=== PATIENT | male | born 1945 | race Caucasian/White ===

== ENCOUNTER 2021-11-20 22:24 | Observation (INO) ==
--- NOTE | 2021-11-20 22:46 | DR.GENAD ---
HPI Time Seen Time Seen by Provider: 11/20/21 22:42 HPI Comment HPI Comment: A 76 y/o male sent over to the ED for evaluation of frequent falls, generalized weakness and difficulty with ambulation. The pt. states that he barely is able to walk now and has been laying on his sofa at home for overa thu now. He denies back pain. He has been to the [facility]'s ED multiple times for same issues. Nurses notes reviewed Nurses Notes Review: Yes Source History Provided: Patient and Significant Other Mode of Arrival Mode of Arrival: EMS Timing Came on: At Night ROS Review of Systems Constitutional: No Symptoms Reported Eyes: No Symptoms Reported ENTM: No Symptoms Reported Respiratoy: No Symptoms Reported Cardiovascular: No Symptoms Reported Gastrointestinal/Abdominal: No Symptoms Reported Genitourinary: No Symptoms Reported Neurological: Other (gait difficulty) Musculoskeletal: No Symptoms Reported Integumentary: No Symptoms Reported Hematologic/Lymphatic: No Symptoms Reported Endocrine: No Symptoms Reported Psychiatric: No Symptoms Reported All Other Systems: Reviewed and Negative PE Vital Signs Vitals: Temperature 97.8 F Pulse Rate 53 Respiratory Rate 20 Blood Pressure 175/72 O2 Sat by Pulse Oximetry 95 General Limitations: No Limitations General Appearance: Alert and In No Apparent Distress Head Head Exam: Normal Inspection, Atraumatic and Normocephalic Eyes Eye exam: Normal Appearance and EOMI ENT ENT Exam: Normal Exam, Normal Oropharynx, Normal External Ear Exam and Mucous Membranes Moist TM/Canal Exam: Bilateral: Normal Neck Neck Exam: Normal Inspection, Full ROM and Trachea Midline Chest Chest Inspection: Normal Inspection Respiratory Respiratory Exam: Normal Lung Sounds Bilat Respiratory Exam: Bilateral: Clear to Auscultation Cardiovascular Cardiovascular Exam: Regular Rate, Normal Rhythm, +S1, +S2 and Other (He has no pedal edema) Abdominal Exam Abdominal Exam: Normal Inspection, Normal Bowel Sounds and Soft Extremities Extremities Exam: Normal Inspection and Other (motor strength is 4/5 and symmetrical in nick upper extremities but maybe 1/5 in the lower extremities. sensory exam seems intact. ) Back Back Exam: Normal Inspection Neurologic Neurological Exam: Alert and Oriented X3 Psychiatric Psychiatric Exam: Normal Affect and Normal Mood Skin Skin Exam: Dry, Intact and Normal Color COURSE Treatment Treatment: findings were discussed with him I spoke with the on-call I.M. provider (Dr. Moura) who agrees with rewuest to hold him in observation status. Pt. was informed of plan, he agrees with this as that is what he wants also and admit orders were written. Reevaluation 1st: Unchanged Consultation Consultation Comments: Name: Miguel Ángel SCOTT#: [id number]: [id number]: 1945Sex: MLocation: EROrder Number(s): [id number](s):CHEST, 1 VIEW Ordering Physician: KJ CURIEL Primary Care: Hudson Ceja Service Date: 11/20/21 Service Time: 2238 PROCEDURE: Chest X-ray 1 View . HISTORY: Weakness and falls. TECHNIQUE: AP view . COMPARISON: None . TECHNICAL QUALITY: Satisfactory . FINDINGS: Normal size heart with previous sternotomy. Mediastinum and hilar regions show no masses or lymphadenopathy . Normal central vascularity . No pulmonary consolidation, masses, pleural fluid, or pneumothorax . No acute bony abnormality . IMPRESSION: No active cardiopulmonary disease . Electronically signed by: Juan Gillespie (Nov 20, 2021 23:16:17) Report Electronically signed: 11/20/21 0775 CC: Kj Curiel Education/Counseling Education/Counseling: Patient, Education and Counseling Educated On: Treatment, Diagnosis, Prognosis and Needs for Follow Up ROR Labs Reviewed Laboratory Results Reviewed?: Yes Result Diagrams: 11/20/21 22:56 11/20/21 22:56 Laboratory: WBC 9.0 X10^3/uL (3.6-10.0) 11/20/21 22:56 RBC 4.15 X10^6/uL (4.7-6.0) L 11/20/21 22:56 Hgb 12.4 g/dL (13.5-18.0) L 11/20/21 22:56 Hct 35.0 % (42.0-54.0) L 11/20/21 22:56 MCV 84.3 fL (80.0-100.0) 11/20/21 22:56 MCH 29.8 pg (27.0-34.0) 11/20/21 22:56 MCHC 35.4 g/dL (33.0-35.0) H 11/20/21 22:56 RDW 14.7 % (11.6-16.5) 11/20/21 22:56 Plt Count 188 X10^3/uL (150.0-450.0) 11/20/21 22:56 MPV 9.3 fL (7.4-11.0) 11/20/21 22:56 Neut % (Auto) 70.6 % (42.0-75.0) 11/20/21 22:56 Lymph % (Auto) 20.8 % (21.0-51.0) L 11/20/21 22:56 [place]ardo % (Auto) 5.9 % (0.0-13.0) 11/20/21 22:56 Eos % (Auto) 1.4 % (0.9-2.9) 11/20/21 22:56 Baso % (Auto) 1.3 % (0.2-1.0) H 11/20/21 22:56 Neut # (Auto) 6.4 x10^3/uL (2.2-4.8) H 11/20/21 22:56 Lymph # (Auto) 1.9 X10^3/uL (1.3-2.9) 11/20/21 22:56 [place]ardo # (Auto) 0.5 x10^3/uL (0.3-0.8) 11/20/21 22:56 Eos # (Auto) 0.1 x10^3/uL (0.0-0.2) 11/20/21 22:56 Baso # (Auto) 0.1 X10^3/uL (0.0-0.1) 11/20/21 22:56 Absolute Nucleated RBC 0.1 /100WBC 11/20/21 22:56 Sodium 138 mmol/L (136-145) 11/20/21 22:56 Corrected Sodium 142 mmol/L (136-145) 11/20/21 22:56 Potassium 3.4 mmol/L (3.5-5.1) L 11/20/21 22:56 Chloride 99 mmol/L (98-107) 11/20/21 22:56 Carbon Dioxide 33.2 mmol/L (21-32) H 11/20/21 22:56 BUN 35 mg/dL (7-18) H 11/20/21 22:56 Creatinine 1.30 mg/dL (0.70-1.30) 11/20/21 22:56 Est GFR (MDRD) Af Amer > 60 (>60) 11/20/21 22:56 Est GFR (MDRD) Non-Af 57 (>60) L 11/20/21 22:56 Glucose 276 mg/dL (65-99) H 11/20/21 22:56 Calcium 8.2 mg/dL (8.5-10.1) L 11/20/21 22:56 Corrected Calcium 9.3 mg/dL (8.5-10.1) 11/20/21 22:56 Total Bilirubin 0.50 mg/dL (0.2-1.0) 11/20/21 22:56 AST 20 Units/L (15-37) 11/20/21 22:56 ALT 29 Units/L (12-78) 11/20/21 22:56 Alkaline Phosphatase 126 Units/L (46-116) H 11/20/21 22:56 Creatine Kinase 81 Units/L (39-308) 11/20/21 22:56 Troponin I High Sens 16.3 ng/L (4.0-60.0) 11/20/21 22:56 Total Protein 6.0 g/dL (6.4-8.2) L 11/20/21 22:56 Albumin 2.6 g/dL (3.4-5.0) L 11/20/21 22:56 Globulin 3.4 g/dL (2.5-4.5) 11/20/21 22:56 Albumin/Globulin Ratio 0.8 Ratio (1.1-2.1) L 11/20/21 22:56 XRAY XRAY Interpreted by: Self X-ray Results: CXR: No pulmoanry infiltrates noted. there is no cardiomegaly. Radiology report is pending. EKG Rate: 54 Gaylord: Normal Rhythm: SB Block: IVCD Hypertrophy: None ST: Lat and Ischemia Opioid Opioid Risk Tool Total: 0 Total Score Risk Category: Low Risk Copyright: Jean Carlos WILSON predicting aberrant behaviors Discharge Plan Diagnosis Discharge Problem: Weakness Discharge Plan Patient Disposition: ADMITTED INPATIENT Condition: Stable Prescriptions: No Action quetiapine 25 mg tablet 1 tab PO QPM latanoprost 0.005 % drops 1 drp OPHTHALMIC (EYE) QPM primidone 50 mg tablet 1 tab PO QDAY atorvastatin 80 mg tablet 1 tab PO QDAY carvedilol 25 mg tablet 1 tab PO BID donepezil 10 mg tablet 1 tab PO BID prednisone 5 mg tablet 1 tab PO BID citalopram 20 mg tablet 1 tab PO QDAY prednisolone acetate 1 % drops,suspension 1 drp OPHTHALMIC (EYE) QID amlodipine 10 mg tablet 1 tab PO QDAY pantoprazole 40 mg tablet,delayed release (DR/EC) 1 tab PO QDAY metoprolol tartrate 50 mg tablet 1 tab PO BID gabapentin 300 mg capsule 1 cap PO TID hydrochlorothiazide 25 mg tablet 1 tab PO QAM insulin glargine [Lantus Solostar U-100 Insulin] 100 unit/mL (3 mL) insulin pen SUBCUT Label Comments: [NO ORIGINAL SIG] abiraterone 500 mg tablet 1 tab PO BID Health Concerns: Post Hospitalization: new medications and changes needed to prevent readmission or further decline. Pt educated and given instructions on all concerns. Plan of Treatment: Continue with present treatment and follow up plan. Pt is to keep follow up appointment as instructed and take medications as ordered. Orders to Discharge Patient Discharge Orders: Transfer (Routine); Ordered 11/21/21 Ordered By: KJ CURIEL Follow ups/Referrals Follow ups/Referrals: Hudson Ceja [Primary Care Provider] - 3 days ADDITIONAL NOTES Additional Notes Additional Notes: Name: Miguel Ángel SCOTT#: [id number]: [id number]: [id number]: MLocation: EROrder Number(s): [id number](s):BRAIN W/O CON Ordering Physician: KJ CURIEL Primary Care: Hudson Ceja Service Date: 11/20/21 Service Time: 2326 PROCEDURE: CT Head without Contrast . HISTORY: Extremity weakness. TECHNIQUE: Axial images were performed through the head without the administration of IV contrast with multiplanar reformations . Dose reduction techniques including Automated Exposure Control (AEC) and adjustment of mA and kV were utilized . COMPARISON: None . TECHNICAL QUALITY: Satisfactory . FINDINGS: Brain shows no mass, hemorrhage, or acute stroke. Encephalomalacia involving both frontal lobes probably related to previous trauma or stroke. Minimal periventricular old micro ischemic changes. Mild diffuse cerebral and cerebellar atrophy. Ventricles are normal size for patient's age. No acute skull or scalp abnormality. Visualized sinuses and mastoids are clear. IMPRESSION: 1. No acute intracranial abnormality. 2. 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 Senescent changes. Electronically signed by: Juan Gillespie (Nov 21, 2021 00:02:43) Report Electronically signed: 11/21/21 0004 CC: Kj Curiel
[2021-11-20 23:13] LABS: EOSINOPHILS # (AUTO) 0.1 x10^3/uL (0.0-0.2)
[2021-11-20 23:17] LABS: BASOPHILS # (AUTO) 0.1 X10^3/uL (0.0-0.1); BASOPHILS % (AUTO) 1.3 % (0.2-1.0); EOSINOPHILS % (AUTO) 1.4 % (0.9-2.9); HEMOGLOBIN 12.4 g/dL (13.5-18.0); LYMPHOCYTES # (AUTO) 1.9 X10^3/uL (1.3-2.9); LYMPHOCYTES % (AUTO) 20.8 % (21.0-51.0); MEAN CORPUSCULAR HEMOGLOBIN 29.8 pg (27.0-34.0); MEAN CORPUSCULAR HGB CONC 35.4 g/dL (33.0-35.0); MEAN CORPUSCULAR VOLUME 84.3 fL (80.0-100.0); MEAN PLATELET VOLUME 9.3 fL (7.4-11.0); MONOCYTES # (AUTO) 0.5 x10^3/uL (0.3-0.8); MONOCYTES % (AUTO) 5.9 % (0.0-13.0); NEUTROPHILS # (AUTO) 6.4 x10^3/uL (2.2-4.8); NEUTROPHILS % (AUTO) 70.6 % (42.0-75.0); RED BLOOD COUNT 4.15 X10^6/uL (4.7-6.0); RED CELL DISTRIBUTION WIDTH 14.7 % (11.6-16.5)
--- NOTE | 2021-11-20 23:17 | RAD ---
PROCEDURE: Chest X-ray 1 View .HISTORY: Weakness and falls.TECHNIQUE: AP view .COMPARISON: None .TECHNICAL QUALITY: Satisfactory .FINDINGS:Normal size heart with previous sternotomy.Mediastinum and hilar regions show no masses or lymphadenopathy .Normal central vascularity .No pulmonary consolidation, masses, pleural fluid, or pneumothorax .No acute bony abnormality .IMPRESSION:No active cardiopulmonary disease .Electronically signed by: Juan Gillespie (Nov 20, 2021 23:16:17)
[2021-11-20 23:23] LABS: ALANINE AMINOTRANSFERASE 29 Units/L (12-78); ALBUMIN 2.6 g/dL (3.4-5.0); ALKALINE PHOSPHATASE 126 Units/L (46-116); ASPARTATE AMINO TRANSFERASE 20 Units/L (15-37); BLOOD UREA NITROGEN 35 mg/dL (7-18); CALCIUM 8.2 mg/dL (8.5-10.1); CARBON DIOXIDE 33.2 mmol/L (21-32); CHLORIDE 99 mmol/L (98-107); COR CA(FOR HYPOALB) 9.3 mg/dL (8.5-10.1); COR NA(FOR HYPERGLY) 142 mmol/L (136-145); CREATINE KINASE 81 Units/L (39-308); SODIUM 138 mmol/L (136-145); eGFR NON BLACK RACES 57 (>60)
--- NOTE | 2021-11-21 00:04 | CT ---
PROCEDURE: CT Head without Contrast .HISTORY: Extremity weakness.TECHNIQUE: Axial images were performed through the head without the administration of IV contrast with multiplanar reformations . Dose reduction techniques including Automated Exposure Control (AEC) and adjustment of mA and kV were utilized .COMPARISON: None .TECHNICAL QUALITY: Satisfactory .FINDINGS:Brain shows no mass, hemorrhage, or acute stroke.Encephalomalacia involving both frontal lobes probably related to previous trauma or stroke. Minimal periventricular old micro ischemic changes. Mild diffuse cerebral and cerebellar atrophy.Ventricles are normal size for patient's age.No acute skull or scalp abnormality.Visualized sinuses and mastoids are clear.IMPRESSION:1. No acute intracranial abnormality.2. 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 Senescent changes.Electronically signed by: Juan Gillespie (Nov 21, 2021 00:02:43)
[2021-11-21] MEDS ORDERED: NS 1,000 ML IV 1,000 ML ONE (00:54)
[2021-11-21] MEDS: NS 1,000 ML IV 1,000 ML IV SCH ×2 (00:58→15:24)
[2021-11-21] MEDS ORDERED: MYSOLINE PO SCH ×2 (01:00→09:00)
[2021-11-21 01:53] VITALS: BMI 24.3
[2021-11-21 05:05] LABS: BASOPHILS # (AUTO) 0.1 X10^3/uL (0.0-0.1); EOSINOPHILS # (AUTO) 0.2 x10^3/uL (0.0-0.2); EOSINOPHILS % (AUTO) 1.9 % (0.9-2.9); HEMATOCRIT 34.3 % (42.0-54.0); LYMPHOCYTES # (AUTO) 2.2 X10^3/uL (1.3-2.9); LYMPHOCYTES % (AUTO) 24.4 % (21.0-51.0); MEAN CORPUSCULAR HEMOGLOBIN 29.5 pg (27.0-34.0); MEAN CORPUSCULAR VOLUME 84.1 fL (80.0-100.0); MEAN PLATELET VOLUME 9.1 fL (7.4-11.0); MONOCYTES # (AUTO) 0.6 x10^3/uL (0.3-0.8); MONOCYTES % (AUTO) 6.3 % (0.0-13.0); NEUTROPHILS # (AUTO) 5.9 x10^3/uL (2.2-4.8); NEUTROPHILS % (AUTO) 66.4 % (42.0-75.0); RED BLOOD COUNT 4.07 X10^6/uL (4.7-6.0); RED CELL DISTRIBUTION WIDTH 14.6 % (11.6-16.5); WHITE BLOOD COUNT 8.9 X10^3/uL (3.6-10.0)
[2021-11-21 05:17] LABS: ALANINE AMINOTRANSFERASE 29 Units/L (12-78); ALBUMIN 2.5 g/dL (3.4-5.0); ALKALINE PHOSPHATASE 105 Units/L (46-116); ASPARTATE AMINO TRANSFERASE 21 Units/L (15-37); BLOOD UREA NITROGEN 30 mg/dL (7-18); CALCIUM 8.4 mg/dL (8.5-10.1); CARBON DIOXIDE 34.2 mmol/L (21-32); CHLORIDE 102 mmol/L (98-107); COR CA(FOR HYPOALB) 9.6 mg/dL (8.5-10.1); COR NA(FOR HYPERGLY) 143 mmol/L (136-145); CREATININE 1.19 mg/dL (0.70-1.30); SODIUM 141 mmol/L (136-145); TOTAL PROTEIN 5.8 g/dL (6.4-8.2); eGFR NON BLACK RACES > 60 (>60)
[2021-11-21 05:35] LABS: APPEARANCE,URINE CLEAR (CLEAR); BILIRUBIN,URINE NEGATIVE (NEGATIVE); BLOOD/HEMOGLOBIN,URINE 2+ (NEGATIVE); COLOR,URINE PALE YELLOW (YELLOW); GLUCOSE, URINE 3+ (NEGATIVE); KETONES,URINE NEGATIVE (NEGATIVE); LEUKOCYTE ESTERASE ,URINE NEGATIVE (NEGATIVE); NITRITES,URINE NEGATIVE (NEGATIVE); PH,URINE 6.5 (5.0 - 8.0); PROTEIN,URINE 1+ (NEGATIVE); UROBILINOGEN,URINE NORMAL (NORMAL)
[2021-11-21 05:36] LABS: BACTERIA,URINE NEGATIVE /HPF (NEGATIVE); RBC,URINE 0-2 /HPF (0-3); SQUAMOUS EPITHELIAL CELL,UR RARE /HPF (NEGATIVE)
[2021-11-21] MEDS ORDERED: KLOR-CON PO PRN (06:28)
[2021-11-21] MEDS ORDERED: POTASSIUM CHLORIDE LIQ 20 MEQ UDC PO PRN (06:28)
[2021-11-21] MEDS ORDERED: K-DUR TAB 20 MEQ PO PRN (06:28)
[2021-11-21] MEDS ORDERED: K-RIDER 10 MEQ/NS 100 ML 10 MEQ/100 ML BAG IV PRN (06:28)
[2021-11-21] MEDS ORDERED: POTASSIUM CHL 60 MEQ/NS 0.45% 500 ML IV PRN (06:28)
[2021-11-21] MEDS ORDERED: MICRO K EXTEN CAP 10 MEQ PO PRN (06:28)
[2021-11-21] MEDS ORDERED: POTASSIUM CHL 40 MEQ/NS 0.45% 500 ML IV PRN (06:28)
[2021-11-21] MEDS: NEURONTIN CAP 300 MG PO SCH ×3 (06:42→22:16)
[2021-11-21] MEDS ORDERED: ABIRATERONE 500 MG PO SCH (09:00)
[2021-11-21] MEDS: PRED FORTE 1 % OP SCH ×4 (09:03→22:14)
[2021-11-21] MEDS: APRESOLINE TAB 25 MG PO SCH ×2 (09:04→22:15)
[2021-11-21] MEDS: MAGNESIUM SULFATE 1 GRAM/100 mL PREMIX 1 G/100 ML BAG IV PRN ×2 (09:04→15:24)
[2021-11-21] MEDS: LIPITOR TAB 80 MG PO SCH (09:04)
[2021-11-21] MEDS: LOVENOX INJ 30 MG SYR SC SCH (09:04)
[2021-11-21] MEDS: PREDNISONE TAB 5 MG PO SCH ×2 (09:04→22:16)
[2021-11-21] MEDS: CELEXA PO SCH (09:05)
[2021-11-21] MEDS: ARICEPT TAB 10 MG PO SCH ×2 (09:05→22:16)
[2021-11-21] MEDS: NORVASC TAB 10 MG PO SCH (09:05)
[2021-11-21] MEDS: PROTONIX TAB 40 MG PO SCH (09:05)
[2021-11-21] MEDS: NovoLIN R (or HumuLIN R) SUBCUT PRN ×3 (11:40→22:14)
[2021-11-21] MEDS: MYSOLINE PO SCH (16:01)
--- NOTE | 2021-11-21 16:26 | DR.H&P ---
H&P History & Physical for Day of: H&P Date: 11/21/21 Chief Complaint Chief Complaint: Weakness/nonambulatory Allergies Allergies Allergy/AdvReac Type Severity Reaction Status Date / Time clopidogrel [From Plavix] Allergy Verified 11/20/21 22:50 History of Present Illness History of Present Illness: This is a 76-year-old white male who presented to the emergency department last night. He is from [place], [place] where his primary care physician is located. His family brought him in here stating that he needs to go to [facility] for inpatient rehabilitation as he is not able to get up and walk on his own. He is falling when he does try to get up and they reported they were no longer take care of him at home. Patient reports his symptoms started 2 weeks ago after he was given a medication to help with sleep by his primary care physician and he took it and did not wake up for 3 days later. After he did wake up he reported that he was not able to get out of bed thereafter and if he does try to stand he falls. Chest x-ray done in ER reveals normal CT of the brain revealed no acute ischemic problems but it does show some encephalomalacia of both frontal lobes consistent with prior CVA or trauma. Since the changes were noted otherwise nothing acute. Labs were unremarkable as well as urinalysis. The patient does report a history of prostate cancer that he has been treated for by Dr. Hardy for the last 4 years. His urologist is Dr. Nam Rowe MD in [place], [place]. Past Medical History Past Medical History: Arthritis, Coronary Artery Disease, CVA, Dementia, Depression, Diabetes, Dyslipidemia, GERD, Hypertension, KS and Renal Disease Past Surgical History Surgical History: Cholecystectomy Family History Family Medical History: Cancer and Hypertension Social History Does patient currently use any type of tobacco product: No Have you used tobacco products in the last 12 months: No Type of Tobacco Use: None Does any household member use tobacco: No Alcohol Use: None Medications Home Medications: clopidogrel [From Plavix] Allergy (Verified 11/20/21 22:50) CONTINUE taking the following medications abiraterone 500 mg tablet 1 tab PO BID 11/20/21 [History] amlodipine 10 mg tablet 1 tab PO QDAY 11/20/21 [History] atorvastatin 80 mg tablet 1 tab PO QDAY 11/20/21 [History] carvedilol 25 mg tablet 1 tab PO BID 11/20/21 [History] citalopram 20 mg tablet 1 tab PO QDAY 11/20/21 [History] donepezil 10 mg tablet 1 tab PO BID 11/20/21 [History] gabapentin 300 mg capsule 1 cap PO TID 11/20/21 [History] hydrochlorothiazide 25 mg tablet 1 tab PO QAM 11/20/21 [History] insulin glargine 100 unit/mL (3 mL) subcutaneous pen (Lantus Solostar U-100 Insulin) 16 ea subcut BID 11/20/21 [History] latanoprost 0.005 % eye drops 1 drp ophthalmic (eye) QPM 11/20/21 [History] metoprolol tartrate 50 mg tablet 1 tab PO BID 11/20/21 [History] pantoprazole 40 mg tablet,delayed release 1 tab PO QDAY 11/20/21 [History] prednisolone acetate 1 % eye drops,suspension 1 drp ophthalmic (eye) QID 11/20/21 [History] prednisone 5 mg tablet 1 tab PO BID 11/20/21 [History] primidone 50 mg tablet 1 tab PO QDAY 11/20/21 [History] quetiapine 25 mg tablet 1 tab PO QPM 11/20/21 [History] Labs Result Diagrams: 11/21/21 04:30 11/21/21 04:30 Labs: Laboratory WBC 8.9 X10^3/uL (3.6-10.0) 11/21/21 04:30 RBC 4.07 X10^6/uL (4.7-6.0) L 11/21/21 04:30 Hgb 12.0 g/dL (13.5-18.0) L 11/21/21 04:30 Hct 34.3 % (42.0-54.0) L 11/21/21 04:30 MCV 84.1 fL (80.0-100.0) 11/21/21 04:30 MCH 29.5 pg (27.0-34.0) 11/21/21 04:30 MCHC 35.0 g/dL (33.0-35.0) 11/21/21 04:30 RDW 14.6 % (11.6-16.5) 11/21/21 04:30 Plt Count 174 X10^3/uL (150.0-450.0) 11/21/21 04:30 MPV 9.1 fL (7.4-11.0) 11/21/21 04:30 Neut % (Auto) 66.4 % (42.0-75.0) 11/21/21 04:30 Lymph % (Auto) 24.4 % (21.0-51.0) 11/21/21 04:30 Sawyer % (Auto) 6.3 % (0.0-13.0) 11/21/21 04:30 Eos % (Auto) 1.9 % (0.9-2.9) 11/21/21 04:30 Baso % (Auto) 1.0 % (0.2-1.0) 11/21/21 04:30 Neut # (Auto) 5.9 x10^3/uL (2.2-4.8) H 11/21/21 04:30 Lymph # (Auto) 2.2 X10^3/uL (1.3-2.9) 11/21/21 04:30 Sawyer # (Auto) 0.6 x10^3/uL (0.3-0.8) 11/21/21 04:30 Eos # (Auto) 0.2 x10^3/uL (0.0-0.2) 11/21/21 04:30 Baso # (Auto) 0.1 X10^3/uL (0.0-0.1) 11/21/21 04:30 Absolute Nucleated RBC 0.0 /100WBC 11/21/21 04:30 Sodium 141 mmol/L (136-145) 11/21/21 04:30 Corrected Sodium 143 mmol/L (136-145) 11/21/21 04:30 Potassium 3.4 mmol/L (3.5-5.1) L 11/21/21 04:30 Chloride 102 mmol/L (98-107) 11/21/21 04:30 Carbon Dioxide 34.2 mmol/L (21-32) H 11/21/21 04:30 BUN 30 mg/dL (7-18) H 11/21/21 04:30 Creatinine 1.19 mg/dL (0.70-1.30) 11/21/21 04:30 Est GFR (MDRD) Af Amer > 60 (>60) 11/21/21 04:30 Est GFR (MDRD) Non-Af > 60 (>60) 11/21/21 04:30 Glucose 174 mg/dL (65-99) H 11/21/21 04:30 POC Glucose (mg/dL) 253 mg/dL (65-99) H 11/21/21 10:50 Calcium 8.4 mg/dL (8.5-10.1) L 11/21/21 04:30 Corrected Calcium 9.6 mg/dL (8.5-10.1) 11/21/21 04:30 Magnesium 1.8 mg/dL (1.7-2.9) 11/21/21 04:30 Total Bilirubin 0.40 mg/dL (0.2-1.0) 11/21/21 04:30 AST 21 Units/L (15-37) 11/21/21 04:30 ALT 29 Units/L (12-78) 11/21/21 04:30 Alkaline Phosphatase 105 Units/L (46-116) 11/21/21 04:30 Creatine Kinase 81 Units/L (39-308) 11/20/21 22:56 Troponin I High Sens 16.3 ng/L (4.0-60.0) 11/20/21 22:56 Total Protein 5.8 g/dL (6.4-8.2) L 11/21/21 04:30 Albumin 2.5 g/dL (3.4-5.0) L 11/21/21 04:30 Globulin 3.3 g/dL (2.5-4.5) 11/21/21 04:30 Albumin/Globulin Ratio 0.8 Ratio (1.1-2.1) L 11/21/21 04:30 Total PSA 0.49 ng/mL (0.13-4.0) 11/21/21 04:30 Specimen Type Clean catch urine 11/21/21 05:19 Urine Color Pale yellow (YELLOW) 11/21/21 05:19 Urine Appearance Clear (CLEAR) 11/21/21 05:19 Urine pH 6.5 (5.0 - 8.0) 11/21/21 05:19 Ur Specific [place] 1.010 (1.000-1.030) 11/21/21 05:19 Urine Protein 1+ (NEGATIVE) 11/21/21 05:19 Urine Glucose (UA) 3+ (NEGATIVE) 11/21/21 05:19 Urine Ketones Negative (NEGATIVE) 11/21/21 05:19 Urine Blood 2+ (NEGATIVE) 11/21/21 05:19 Urine Nitrite Negative (NEGATIVE) 11/21/21 05:19 Urine Bilirubin Negative (NEGATIVE) 11/21/21 05:19 Urine Urobilinogen Normal (NORMAL) 11/21/21 05:19 Ur Leukocyte Esterase Negative (NEGATIVE) 11/21/21 05:19 Urine RBC 0-2 /HPF (0-3) 11/21/21 05:19 Urine WBC None seen /HPF (0-5) 11/21/21 05:19 Ur Squamous Epith Cells Rare /HPF (NEGATIVE) 11/21/21 05:19 Urine Bacteria Negative /HPF (NEGATIVE) 11/21/21 05:19 Ur Culture Indicated? No/not indicated 11/21/21 05:19 SARS-CoV-2 (PCR) Negative (NEGATIVE) 11/21/21 00:13 Review of Systems Constitutional: Weakness Eyes: No Symptoms Reported ENT: No Symptoms Reported Respiratory: No Symptoms Reported Cardiovascular: No Symptoms Reported Gastrointestinal: No Symptoms Reported Genitourinary: No Symptoms Reported Musculoskeletal: Other (Diffuse muscular weakness) Skin: No Symptoms Reported Neurological: No Symptoms Reported Physical Exam Vital Signs: Temperature 97.9 F Pulse Rate [Left] 62 Pulse Rate 55 Respiratory Rate 20 Blood Pressure [Left Arm] 152/67 Blood Pressure 152/92 O2 Sat by Pulse Oximetry 94 Oriented: Normal, Time, Person and Place Eyes: Normal Ear: Normal Nose: Normal Throat: Normal Respiratory: Clear Throughout Cardiovascular: Normal : Normal Palpation: Normal Tenderness: Normal Skin: Normal Musculoskeletal: Normal Psychiatric: Normal Mood Description: Calm Affect: Normal Speech Pattern: Clear and Appropriate Assessment/Plan (1) Myopathy: Narrative Support Text: 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 He will be related to his underlying prostate cancer. Status: Acute Plan: Given the patient's weakness from this we will plan on getting him admitted to inpatient rehab for physical rehabilitation and therapy to see if they can help improve his strength where he can be ambulatory again. The patient wishes to go to in [place], [place] in his hometown and we have found one at this time and hopefully they will be able to take him of the next day or 2. They report that they do accept admissions over weekends. (2) History of prostate cancer: Status: Acute (3) Hypertension: Status: Acute Plan: Resume patient's home antihypertensive medications. (4) Coronary artery disease: Status: Acute Plan: I will resume the patient's atorvastatin and antihypertensives. (5) Insomnia: Status: Acute Plan: I will hold the patient's Seroquel because I am not sure if that is what the medicine was given to him the started his 3 days of sleep. (6) Diabetes mellitus type 2, insulin dependent: Status: Acute Plan: I will resume the patient home insulin.
[2021-11-21] MEDS ORDERED: SNACK - Diabetic Appropriate PO SCH (20:00)
[2021-11-21] MEDS ORDERED: XALATAN OP SCH (21:00)
[2021-11-21] MEDS ORDERED: LANTUS SC SCH (21:00)
[2021-11-21] MEDS ORDERED: SEROquel TAB 25 mg PO SCH (21:00)
[2021-11-21] MEDS: LANTUS SC SCH (22:14)
[2021-11-21] MEDS: LOPRESSOR TAB 50 MG PO SCH (22:16)
[2021-11-21] MEDS: COREG TAB 25 MG PO SCH (22:17)
[2021-11-22] MEDS: NS 1,000 ML IV 1,000 ML IV SCH (03:46)
[2021-11-22 05:31] LABS: BASOPHILS # (AUTO) 0.1 X10^3/uL (0.0-0.1); BASOPHILS % (AUTO) 0.8 % (0.2-1.0); EOSINOPHILS # (AUTO) 0.1 x10^3/uL (0.0-0.2); EOSINOPHILS % (AUTO) 0.8 % (0.9-2.9); HEMATOCRIT 35.1 % (42.0-54.0); HEMOGLOBIN 12.2 g/dL (13.5-18.0); LYMPHOCYTES # (AUTO) 1.5 X10^3/uL (1.3-2.9); LYMPHOCYTES % (AUTO) 13.7 % (21.0-51.0); MEAN CORPUSCULAR HEMOGLOBIN 29.6 pg (27.0-34.0); MEAN CORPUSCULAR HGB CONC 34.8 g/dL (33.0-35.0); MEAN CORPUSCULAR VOLUME 84.9 fL (80.0-100.0); MEAN PLATELET VOLUME 9.2 fL (7.4-11.0); MONOCYTES # (AUTO) 0.5 x10^3/uL (0.3-0.8); MONOCYTES % (AUTO) 4.8 % (0.0-13.0); NEUTROPHILS # (AUTO) 8.6 x10^3/uL (2.2-4.8); NEUTROPHILS % (AUTO) 79.9 % (42.0-75.0); RED BLOOD COUNT 4.14 X10^6/uL (4.7-6.0); RED CELL DISTRIBUTION WIDTH 14.2 % (11.6-16.5); WHITE BLOOD COUNT 10.8 X10^3/uL (3.6-10.0)
[2021-11-22 05:43] LABS: ALANINE AMINOTRANSFERASE 28 Units/L (12-78); ALBUMIN 2.5 g/dL (3.4-5.0); ALKALINE PHOSPHATASE 100 Units/L (46-116); ASPARTATE AMINO TRANSFERASE 20 Units/L (15-37); BLOOD UREA NITROGEN 32 mg/dL (7-18); CALCIUM 8.1 mg/dL (8.5-10.1); CHLORIDE 105 mmol/L (98-107); COR CA(FOR HYPOALB) 9.3 mg/dL (8.5-10.1); COR NA(FOR HYPERGLY) 142 mmol/L (136-145); CREATININE 1.39 mg/dL (0.70-1.30); MAGNESIUM 2.1 mg/dL (1.7-2.9); SODIUM 141 mmol/L (136-145); eGFR NON BLACK RACES 53 (>60)
[2021-11-22] MEDS: NEURONTIN CAP 300 MG PO SCH (05:55)
[2021-11-22] MEDS ORDERED: HYDROCHLOROTHIAZIDE 25 MG TAB PO SCH (09:00)
[2021-11-22] MEDS ORDERED: ABIRATERONE 500 MG PO SCH (09:00)
--- NOTE | 2021-11-22 09:17 | PCM.PROG ---
Progress Note Progress Note for Day of Date of Exam: 11/22/21 Subjective Subjective: The patient is resting well this morning. He does report he feels better today and that he sat on the side of the bed yesterday and did stand up with help. The rn case manager started working on getting him transferred to a [facility] for rehab in [place], [place]. His family initiated talks about getting him into a rehab facility for temporary inpatient physical therapy and rehabilitation. They were reviewed his case now and they accept him they will be transferring him there over the next day or so. We will continue to get the patient IV fluid and start physical therapy only to help get him ambulatory again and to build back his muscle strength. Also noted the patient is blood pressure is not controlled at this time. Past Medical Family Social History Allergies: Allergies clopidogrel [From Plavix] Allergy (Verified 11/20/21 22:50) Review of Systems ROS: No change since H&P Vital Signs and I&O's Vital Signs: Temperature 97.5 F Pulse Rate [Left] 63 Pulse Rate 55 Respiratory Rate 18 Blood Pressure [Right Arm] 150/68 Blood Pressure [Left Arm] 171/76 Blood Pressure 152/92 O2 Sat by Pulse Oximetry 98 Intake and Output: Intake & Output 11/19/21 11/20/21 11/21/21 11/22/21 11:59 11:59 11:59 11:59 Intake Total 686 / 686 780 / 780 Output Total 500 / 500 350 / 350 Balance 186 / 186 430 / 430 Physical Exam Oriented: Normal, Time, Person and Place Eyes: Normal Ear: Normal Nose: Normal Throat: Normal Respiratory: Normal Cardiovascular: Normal : Normal Tenderness: Normal Skin: Normal Musculoskeletal: Normal Psychiatric: Normal Mood Description: Calm Affect: Normal Speech Pattern: Clear and Appropriate Laboratory and Diagnostics Result Diagrams: 11/22/21 04:40 11/22/21 04:40 Labs: Laboratory WBC 10.8 X10^3/uL (3.6-10.0) H 11/22/21 04:40 RBC 4.14 X10^6/uL (4.7-6.0) L 11/22/21 04:40 Hgb 12.2 g/dL (13.5-18.0) L 11/22/21 04:40 Hct 35.1 % (42.0-54.0) L 11/22/21 04:40 MCV 84.9 fL (80.0-100.0) 11/22/21 04:40 MCH 29.6 pg (27.0-34.0) 11/22/21 04:40 MCHC 34.8 g/dL (33.0-35.0) 11/22/21 04:40 RDW 14.2 % (11.6-16.5) 11/22/21 04:40 Plt Count 174 X10^3/uL (150.0-450.0) 11/22/21 04:40 MPV 9.2 fL (7.4-11.0) 11/22/21 04:40 Neut % (Auto) 79.9 % (42.0-75.0) H 11/22/21 04:40 Lymph % (Auto) 13.7 % (21.0-51.0) L 11/22/21 04:40 [place] % (Auto) 4.8 % (0.0-13.0) 11/22/21 04:40 Eos % (Auto) 0.8 % (0.9-2.9) L 11/22/21 04:40 Baso % (Auto) 0.8 % (0.2-1.0) 11/22/21 04:40 Neut # (Auto) 8.6 x10^3/uL (2.2-4.8) H 11/22/21 04:40 Lymph # (Auto) 1.5 X10^3/uL (1.3-2.9) 11/22/21 04:40 [place] # (Auto) 0.5 x10^3/uL (0.3-0.8) 11/22/21 04:40 Eos # (Auto) 0.1 x10^3/uL (0.0-0.2) 11/22/21 04:40 Baso # (Auto) 0.1 X10^3/uL (0.0-0.1) 11/22/21 04:40 Absolute Nucleated RBC 0.0 /100WBC 11/22/21 04:40 Sodium 141 mmol/L (136-145) 11/22/21 04:40 Corrected Sodium 142 mmol/L (136-145) 11/22/21 04:40 Potassium 4.5 mmol/L (3.5-5.1) 11/22/21 04:40 Chloride 105 mmol/L (98-107) 11/22/21 04:40 Carbon Dioxide 31.0 mmol/L (21-32) 11/22/21 04:40 BUN 32 mg/dL (7-18) H 11/22/21 04:40 Creatinine 1.39 mg/dL (0.70-1.30) H 11/22/21 04:40 Est GFR (MDRD) Af Amer > 60 (>60) 11/22/21 04:40 Est GFR (MDRD) Non-Af 53 (>60) L 11/22/21 04:40 Glucose 140 mg/dL (65-99) H 11/22/21 04:40 POC Glucose (mg/dL) 366 mg/dL (65-99) H 11/21/21 20:30 Calcium 8.1 mg/dL (8.5-10.1) L 11/22/21 04:40 Corrected Calcium 9.3 mg/dL (8.5-10.1) 11/22/21 04:40 Magnesium 2.1 mg/dL (1.7-2.9) 11/22/21 04:40 Total Bilirubin 0.40 mg/dL (0.2-1.0) 11/22/21 04:40 AST 20 Units/L (15-37) 11/22/21 04:40 ALT 28 Units/L (12-78) 11/22/21 04:40 Alkaline Phosphatase 100 Units/L (46-116) 11/22/21 04:40 Creatine Kinase 81 Units/L (39-308) 11/20/21 22:56 Troponin I High Sens 16.3 ng/L (4.0-60.0) 11/20/21 22:56 Total Protein 6.0 g/dL (6.4-8.2) L 11/22/21 04:40 Albumin 2.5 g/dL (3.4-5.0) L 11/22/21 04:40 Globulin 3.5 g/dL (2.5-4.5) 11/22/21 04:40 Albumin/Globulin Ratio 0.7 Ratio (1.1-2.1) L 11/22/21 04:40 Total PSA 0.49 ng/mL (0.13-4.0) 11/21/21 04:30 Specimen Type Clean catch urine 11/21/21 05:19 Urine Color Pale yellow (YELLOW) 11/21/21 05:19 Urine Appearance Clear (CLEAR) 11/21/21 05:19 Urine pH 6.5 (5.0 - 8.0) 11/21/21 05:19 Ur Specific [place] 1.010 (1.000-1.030) 11/21/21 05:19 Urine Protein 1+ (NEGATIVE) 11/21/21 05:19 Urine Glucose (UA) 3+ (NEGATIVE) 11/21/21 05:19 Urine Ketones Negative (NEGATIVE) 11/21/21 05:19 Urine Blood 2+ (NEGATIVE) 11/21/21 05:19 Urine Nitrite Negative (NEGATIVE) 11/21/21 05:19 Urine Bilirubin Negative (NEGATIVE) 11/21/21 05:19 Urine Urobilinogen Normal (NORMAL) 11/21/21 05:19 Ur Leukocyte Esterase Negative (NEGATIVE) 11/21/21 05:19 Urine RBC 0-2 /HPF (0-3) 11/21/21 05:19 Urine WBC None seen /HPF (0-5) 11/21/21 05:19 Ur Squamous Epith Cells Rare /HPF (NEGATIVE) 11/21/21 05:19 Urine Bacteria Negative /HPF (NEGATIVE) 11/21/21 05:19 Ur Culture Indicated? No/not indicated 11/21/21 05:19 SARS-CoV-2 (PCR) Negative (NEGATIVE) 11/21/21 00:13 Plan (1) Myopathy: Status: Acute Plan: Given the patient's weakness from this we will plan on getting him admitted to inpatient rehab for physical rehabilitation and therapy to see if they can help improve his strength where he can be ambulatory again. The patient wishes to go to 1 in [place], [place] in his hometown and we have found one at this time and hopefully they will be able to take him of the next day or 2. They report that they do accept admissions over weekends. (2) History of prostate cancer: Status: Acute Plan: Patient has been receiving outpatient prostate cancer treatment per funeral planning counselor/Oncologist Dr. Hardy. (3) Hypertension: Status: Acute Narrative Support Text: The patient's blood pressure has been uncontrolled since admission. The patient's blood pressure this morning is 150/68. Plan: Patient is taking amlodipine 10 mg daily, Coreg 25 mg twice daily, HCTZ 25 mg daily and hydralazine 25 mg twice daily. I will add losartan 50 mg daily and the dose can be titrated up or down according what his blood pressure is running. (4) Coronary artery disease: Status: Acute Plan: I will resume the patient's atorvastatin and antihypertensives. (5) Insomnia: Status: Acute Plan: I will hold the patient's Seroquel because I am not sure if that is what the medicine was given to him the started his 3 days of sleep. (6) Diabetes mellitus type 2, insulin dependent: Status: Acute Plan: I will resume the patient home insulin.
[2021-11-22] MEDS: ARICEPT TAB 10 MG PO SCH (09:25)
[2021-11-22] MEDS: LIPITOR TAB 80 MG PO SCH (09:26)
[2021-11-22] MEDS: COREG TAB 25 MG PO SCH (09:26)
[2021-11-22] MEDS: NORVASC TAB 10 MG PO SCH (09:26)
[2021-11-22] MEDS: MYSOLINE PO SCH (09:26)
[2021-11-22] MEDS: CELEXA PO SCH (09:26)
[2021-11-22] MEDS: LOPRESSOR TAB 50 MG PO SCH (09:26)
[2021-11-22] MEDS: PROTONIX TAB 40 MG PO SCH (09:26)
[2021-11-22] MEDS: APRESOLINE TAB 25 MG PO SCH (09:26)
[2021-11-22] MEDS: PREDNISONE TAB 5 MG PO SCH (09:26)
[2021-11-22] MEDS: PRED FORTE 1 % OP SCH ×2 (09:27→12:14)
[2021-11-22] MEDS: LANTUS SC SCH (09:36)
[2021-11-22] MEDS: LOVENOX INJ 30 MG SYR SC SCH (09:37)
[2021-11-22] MEDS ORDERED: COZAAR PO SCH (10:00)
--- NOTE | 2021-11-22 11:16 | PCM.DCPLAN ---
DISCHARGE SUMMARY Admission Date Date of Admission: 11/21/21 Discharge Date Discharge Date: 11/22/21 Admission Diagnoses (1) Myopathy: Status: Acute (2) History of prostate cancer: Status: Acute (3) Hypertension: Status: Acute (4) Coronary artery disease: Status: Acute (5) Insomnia: Status: Acute (6) Diabetes mellitus type 2, insulin dependent: Status: Acute Discharge Diagnoses Discharge Diagnosis: 1. Biopsy of chronic illness 2. History of prostate cancer 3. Hypertension 4. Coronary artery disease 5. Chronic persistent insomnia 6. Diabetes mellitus type 2 Discharge Medications Discharge Medications: Home Medication List abiraterone 500 mg tablet 1 tab PO BID 11/20/21 [History] amlodipine 10 mg tablet 1 tab PO QDAY 11/20/21 [History] atorvastatin 80 mg tablet 1 tab PO QDAY 11/20/21 [History] carvedilol 25 mg tablet 1 tab PO BID 11/20/21 [History] citalopram 20 mg tablet 1 tab PO QDAY 11/20/21 [History] donepezil 10 mg tablet 1 tab PO BID 11/20/21 [History] gabapentin 300 mg capsule 1 cap PO TID 11/20/21 [History] insulin glargine 100 unit/mL (3 mL) subcutaneous pen (Lantus Solostar U-100 Insulin) 16 ea subcut BID 11/20/21 [History] latanoprost 0.005 % eye drops 1 drp ophthalmic (eye) QPM 11/20/21 [History] pantoprazole 40 mg tablet,delayed release 1 tab PO QDAY 11/20/21 [History] prednisolone acetate 1 % eye drops,suspension 1 drp ophthalmic (eye) QID 11/20/21 [History] prednisone 5 mg tablet 1 tab PO BID 11/20/21 [History] primidone 50 mg tablet 1 tab PO QDAY 11/20/21 [History] quetiapine 25 mg tablet 1 tab PO QPM 11/20/21 [History] losartan 50 mg tablet 50 mg PO DAILY 11/22/21 [Rx] Prescriptions: Hospital Course Vital Signs: Temperature 97.8 F Pulse Rate [Left] 67 Pulse Rate 55 Respiratory Rate 14 Blood Pressure [Right Arm] 148/77 Blood Pressure [Left Arm] 171/76 Blood Pressure 152/92 O2 Sat by Pulse Oximetry 97 Latest Lab Results: Laboratory Last Values WBC 10.8 X10^3/uL (3.6-10.0) H 11/22/21 04:40 RBC 4.14 X10^6/uL (4.7-6.0) L 11/22/21 04:40 Hgb 12.2 g/dL (13.5-18.0) L 11/22/21 04:40 Hct 35.1 % (42.0-54.0) L 11/22/21 04:40 MCV 84.9 fL (80.0-100.0) 11/22/21 04:40 MCH 29.6 pg (27.0-34.0) 11/22/21 04:40 MCHC 34.8 g/dL (33.0-35.0) 11/22/21 04:40 RDW 14.2 % (11.6-16.5) 11/22/21 04:40 Plt Count 174 X10^3/uL (150.0-450.0) 11/22/21 04:40 MPV 9.2 fL (7.4-11.0) 11/22/21 04:40 Neut % (Auto) 79.9 % (42.0-75.0) H 11/22/21 04:40 Lymph % (Auto) 13.7 % (21.0-51.0) L 11/22/21 04:40 [place] % (Auto) 4.8 % (0.0-13.0) 11/22/21 04:40 Eos % (Auto) 0.8 % (0.9-2.9) L 11/22/21 04:40 Baso % (Auto) 0.8 % (0.2-1.0) 11/22/21 04:40 Neut # (Auto) 8.6 x10^3/uL (2.2-4.8) H 11/22/21 04:40 Lymph # (Auto) 1.5 X10^3/uL (1.3-2.9) 11/22/21 04:40 [place] # (Auto) 0.5 x10^3/uL (0.3-0.8) 11/22/21 04:40 Eos # (Auto) 0.1 x10^3/uL (0.0-0.2) 11/22/21 04:40 Baso # (Auto) 0.1 X10^3/uL (0.0-0.1) 11/22/21 04:40 Absolute Nucleated RBC 0.0 /100WBC 11/22/21 04:40 Sodium 141 mmol/L (136-145) 11/22/21 04:40 Corrected Sodium 142 mmol/L (136-145) 11/22/21 04:40 Potassium 4.5 mmol/L (3.5-5.1) 11/22/21 04:40 Chloride 105 mmol/L (98-107) 11/22/21 04:40 Carbon Dioxide 31.0 mmol/L (21-32) 11/22/21 04:40 BUN 32 mg/dL (7-18) H 11/22/21 04:40 Creatinine 1.39 mg/dL (0.70-1.30) H 11/22/21 04:40 Est GFR (MDRD) Af Amer > 60 (>60) 11/22/21 04:40 Est GFR (MDRD) Non-Af 53 (>60) L 11/22/21 04:40 Glucose 140 mg/dL (65-99) H 11/22/21 04:40 POC Glucose (mg/dL) 366 mg/dL (65-99) H 11/21/21 20:30 Calcium 8.1 mg/dL (8.5-10.1) L 11/22/21 04:40 Corrected Calcium 9.3 mg/dL (8.5-10.1) 11/22/21 04:40 Magnesium 2.1 mg/dL (1.7-2.9) 11/22/21 04:40 Total Bilirubin 0.40 mg/dL (0.2-1.0) 11/22/21 04:40 AST 20 Units/L (15-37) 11/22/21 04:40 ALT 28 Units/L (12-78) 11/22/21 04:40 Alkaline Phosphatase 100 Units/L (46-116) 11/22/21 04:40 Creatine Kinase 81 Units/L (39-308) 11/20/21 22:56 Troponin I High Sens 16.3 ng/L (4.0-60.0) 11/20/21 22:56 Total Protein 6.0 g/dL (6.4-8.2) L 11/22/21 04:40 Albumin 2.5 g/dL (3.4-5.0) L 11/22/21 04:40 Globulin 3.5 g/dL (2.5-4.5) 11/22/21 04:40 Albumin/Globulin Ratio 0.7 Ratio (1.1-2.1) L 11/22/21 04:40 Total PSA 0.49 ng/mL (0.13-4.0) 11/21/21 04:30 Specimen Type Clean catch urine 11/21/21 05:19 Urine Color Pale yellow (YELLOW) 11/21/21 05:19 Urine Appearance Clear (CLEAR) 11/21/21 05:19 Urine pH 6.5 (5.0 - 8.0) 11/21/21 05:19 Ur Specific [place] 1.010 (1.000-1.030) 11/21/21 05:19 Urine Protein 1+ (NEGATIVE) 11/21/21 05:19 Urine Glucose (UA) 3+ (NEGATIVE) 11/21/21 05:19 Urine Ketones Negative (NEGATIVE) 11/21/21 05:19 Urine Blood 2+ (NEGATIVE) 11/21/21 05:19 Urine Nitrite Negative (NEGATIVE) 11/21/21 05:19 Urine Bilirubin Negative (NEGATIVE) 11/21/21 05:19 Urine Urobilinogen Normal (NORMAL) 11/21/21 05:19 Ur Leukocyte Esterase Negative (NEGATIVE) 11/21/21 05:19 Urine RBC 0-2 /HPF (0-3) 11/21/21 05:19 Urine WBC None seen /HPF (0-5) 11/21/21 05:19 Ur Squamous Epith Cells Rare /HPF (NEGATIVE) 11/21/21 05:19 Urine Bacteria Negative /HPF (NEGATIVE) 11/21/21 05:19 Ur Culture Indicated? No/not indicated 11/21/21 05:19 SARS-CoV-2 (PCR) Negative (NEGATIVE) 11/21/21 00:13 Hospital Course: After admission the patient was started on IV fluid and we resumed his regular home medicine. I discussed with the patient what was going on and he reports he has a 2-week history of not being able to ambulate after taking some sleeping pills that put him asleep for 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 There was no acute ischemic findings or problems noted on the CT. Chest x-ray was normal. The patient's blood pressure has been elevated since being admitted for observation. Asked starting him on losartan this morning 50 mg daily and stopped his hydralazine 25 mg twice daily. I also stopped his metoprolol tartrate 50 mg twice daily and replaced with Coreg 25 mg twice daily. Our home health care case manager started working on prison placement in [place], [place] and still rehab. They have agreed to accept the patient today for inpatient physical therapy to help restrengthen his muscles to get him ambulatory again. Patient will be discharged today in stable condition to skilled rehab in [place], [place].
[2021-11-22] MEDS: NovoLIN R (or HumuLIN R) SUBCUT PRN (12:13)
[2021-11-22 14:20] VITALS: BP 154/69
== END 2021-11-22 13:30 ==
LOC: MED/SURG 22:24 → ER 22:24 → MED/SURG 11-21 00:58
PROVIDERS: ADMIT Family Medicine; ATTEND Family Medicine
DX: I10 Essential (primary) hypertension; G47.00 Insomnia, unspecified; R53.1 Weakness; G93.89 Other specified disorders of brain; Z85.46 Personal history of malignant neoplasm of prostate; Z86.73 Personal history of transient ischemic attack (TIA), and cerebral infarction without residual deficits; Z20.822 Contact with and (suspected) exposure to COVID-19; E11.65 Type 2 diabetes mellitus with hyperglycemia; G72.89 Other specified myopathies; I25.10 Atherosclerotic heart disease of native coronary artery without angina pectoris; Z79.4 Long term (current) use of insulin; R29.6 Repeated falls; R94.31 Abnormal electrocardiogram [ECG] [EKG]